=== PATIENT | female | born 1995 | race Caucasian/White ===

== ENCOUNTER 2017-11-29 13:39 | Emergency (ER) | payer OTHER ==
--- NOTE | 2017-11-29 14:22 | CT ---
Head CT Technique: Multiple axial sections through the brain were obtained. Intravenous contrast was not utilized. Comparison: No previous intracranial imaging. Findings: Ventricles along with basal cisterns and sulci over convexities are within normal limits for the patient's age. No abnormal parenchymal densities are seen. No evidence of intracranial hemorrhage. No midline shift or mass effect is seen. Bone window settings were reviewed which shows no acute calvarial abnormality. Visualized sinuses are clear. Impression: 1. Nothing acute is identified on noncontrast head CT exam. Diagnostic code #1
--- NOTE | 2017-11-29 14:31 | CT ---
CT cervical spine Technique: Multiple axial sections were obtained from above C1 inferiorly to the bottom of T2. Reconstructed sagittal and coronal images were reviewed. Findings: Posterior skull base is intact. Soft tissue density is seen within the middle ear cavity on the right side. Vertebral bodies and posterior arches are intact. No fracture is seen. No bony central or bony neural foraminal stenosis is seen. No abnormal subluxation is seen on the reconstructed sagittal images. Impression: 1. Nonspecific soft tissue density within the right middle ear cavity. Difficult to exclude a cholesteatoma or otitis media. 2. Nothing acute is seen on CT study of the cervical spine. Diagnostic code #3
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
--- NOTE | 2017-11-29 15:15 | CR ---
Thoracic spine: AP, lateral and swimmer's views of the thoracic spine were obtained. Comparison: No prior thoracic spine exam. Minimal scoliosis is noted. Vertebral body heights and disc spaces are maintained. No subluxation or fracture is seen. Pedicles are intact. Impression: 1. Slight scoliosis. No additional abnormality is seen on three-view thoracic spine exam. Diagnostic code #2
== END 2017-11-29 15:12 | disposition home or self-care (01) ==
LOC: JD.ED 13:39
DX: S29.012A Strain of muscle and tendon of back wall of thorax, initial encounter (principal); G44.209 Tension-type headache, unspecified, not intractable; V49.9XXA Car occupant (driver) (passenger) injured in unspecified traffic accident, initial encounter
CPT/HCPCS: 70450; 70450-26; 72070; 72070-26; 72125; 72125-26; 99284; 99284-25